=== PATIENT | female | born 1980 | race Asian ===

== ENCOUNTER → 2021-01-31 | Outpatient (CLI) | payer OTHER ==
[~2021-01-31] MED LIST: IOHEXOL 300 MG/ML 100ML VIAL. INT UTERIN ONE
--- NOTE | 2021-01-31 14:56 | RAD ---
DG HYSTEROSALPINGOGRAM W/FLUORO History: Reason: INFERTILITY, 0.9 MIN FLUORO TIME, OMNI 300 / Spl. Instructions: / History: COMPARISON: None TECHNIQUE: Patient was informed of the risks to include pain, infection, and bleeding. All questions were answered. Patient signed a written consent form for hysterosalpingogram. Patient was placed in a supine position on the fluoroscopy table. Speculum was inserted and cervix was cleansed with chlorhe xidine solution. HSG catheter was inserted and secured with balloon inflation. Contrast was injected during fluoroscopic visualization, 3 cc of Omnipaque contrast. The balloon was deflated and catheter removed. Speculum was removed. There were no immediate complications. FINDINGS: Filling defects within the uterus related to air bubbles. Both fallopian tubes are patent. Cervix is patent. Fluoroscopy time: 0.9 minutes, 6 images. IMPRESSION: 1. Unremarkable hysterosalpingogram. Patent fallopian tubes. Electronically signed by: Chris Clark DO (01/31/2021 2:54 PM) [id number]
== END | disposition home or self-care (01) ==
LOC: RAD 13:24
PROVIDERS: ATTEND Obstetrics & Gynecology
DX: N97.9 Female infertility, unspecified (principal); Z91.013 Allergy to seafood; Z88.8 Allergy status to other drugs, medicaments and biological substances
CPT/HCPCS: 58340; 74740; Q9967